=== PATIENT | male | born 1965 | race Caucasian/White ===

== ENCOUNTER 2018-08-13 11:10 | Inpatient (IN) | payer BC ==
[~2018-08-13] VITALS: Ht 193 cm; Wt 97.5 kg
[~2018-08-13 11:10] MED LIST: ATRIPLA TABLET1 TAB
[2018-08-13] MEDS ORDERED: TIVICAY (11:38)
--- NOTE | 2018-08-13 11:39 | NUR ---
PTE REFIERE DOLOR ABDOMINAL SE TRENT S/V YS EUBICA EN AREA DE OBSERVACION
--- NOTE | 2018-08-13 12:38 | NUR ---
SE EDUCA A PTE SOBRE TX MEIDCO FREDI REFIERE ENTENDER. SE ADMINISTRAN MEIDCAMENO S APTE LOS CUALES TOLERA Y SE TOMNA MUESTRAS DE LABORATORIO UTILIZANDO MEDIDAS ASEPTICAS Y SE COLOCA H/L A TE EL CUAL SE ENCUENRA PATENE SCOTTIE DE EDEMAY ENROJECIMIENTO. SE COLOCA H/L A PE Y SE NOTIFICA ESUUDIO DE CT PO PENDIENTE.
--- NOTE | 2018-08-13 17:59 | NUR ---
SE ORIENTA PTE SOBRE ADMINISTRACION DE MEDICAMENTO ANA ORDEN MEDICA,REFIERE ENTENDER.REFIERE NO PUEDE QUEDARSE YA QUE NO VINO PREPARADO CON JOSEF COSAS,REFIERE QUIERE IRSE Y REGRESAR.PTE REFIERE DR GONGORA LE ORIENTO SOBRE RIESGOS Y DOCUMENTO LAMA.SE LE NOTIFICA A DR CHARLA LAURENT QUIEN INDICA PTE PUEDE FIRMAR DOCUMENTO LAMA SI FUE ORIENTADO POR MEDICO DE SERGEY DE EMERGENCIA.SE LE ORIENTA A PTE SOBRE DOCUEMTO LAMA Y REFIERE FIRMARA LUEGO DE ACABAR ANTIBIOTICO.
--- NOTE | 2018-08-13 20:34 | NUR ---
PTE REGRESA A SERGEY PARA CONTINUAR TX.SE CANALIZA BAJO MEDIDAS ASEPTICAS Y SE COLOCA FLUIDOS DE MANTENIMIENTO BAJANDO SIN DIFICULTAD.SE NOTIFICA A DR LAURENT.
--- NOTE | 2018-08-14 00:23 | NUR ---
SE RECIBE PACIENTE EN CAMA CON MEDIDAS DE SEGURIDAD. ALERTA CONSCIENTE Y ORIENTADO X3 BUEN PATRON RESPIRATORIO. SCOTTIE DE DOLOR AL MOMENTO. IVFLUIDS PATENTE. EN ESPERA DE SER VISTO EN CONSULTA POR EL DR. Joyce LAURENT
--- NOTE | 2018-08-14 07:00 | NUR ---
PACIENTE ALERTA Y ORIENTADO EN JOSEF BONNY ESFERAS, PRESENTA BUEN PATRON RESPIRATORIO Y SCOTTIE DE DOLOR. RECIBIENDO 0.45% NSS A 125 ML/HR, VENOPUNCION PATENTE Y SCOTTIE DE S/S DE FLEBITIS E INFILTRACION. PENDIENTE CONSULTA CON COLORECTAL DR Melanie LAURENT POR APENDICITIS.
[2018-08-18] MEDS ORDERED: INTESTINEX680 M1 PO (09:22)
[2018-08-18] MEDS ORDERED: AMOX-CLAV 875-1 EACH PO (09:22)
== END 2018-08-18 11:29 | disposition home or self-care (01) | DRG 372 ==
LOC: ER 11:10 → SEC-K 08-14 08:52 → SURH 08-14 10:08
PROVIDERS: ADMIT Surgery
PROC: BW21ZZZ Computerized Tomography (CT Scan) of Abdomen and Pelvis (ICD-10-PCS; principal; 2018-08-17)
DX: K35.33 Acute appendicitis with perforation, localized peritonitis, and gangrene, with abscess (principal); B20 Human immunodeficiency virus [HIV] disease

== ENCOUNTER 2018-09-01 10:08 | Outpatient (CLI) | payer BC ==
[~2018-09-01 10:08] MED LIST changes: +AMOX-CLAV 875-1 EACH PO; +INTESTINEX680 M1 PO; +TIVICAY
== END 2018-09-01 10:12 | disposition home or self-care (01) ==
LOC: LAB 10:08
DX: R10.31 Right lower quadrant pain (principal)

== ENCOUNTER 2018-09-08 09:40 | Outpatient (CLI) | payer BC | END 2018-09-08 10:14 | disposition home or self-care (01) | LOC: TOM 09:40 | DX: K35.2 Acute appendicitis with generalized peritonitis (principal) ==

== ENCOUNTER 2018-09-21 14:14 | Outpatient (CLI) | payer BC | END 2018-09-21 14:20 | disposition home or self-care (01) | LOC: LAB 14:14 | DX: B20 Human immunodeficiency virus [HIV] disease (principal); R10.31 Right lower quadrant pain ==

== ENCOUNTER → 2018-09-21 | Outpatient (CLI) | payer BC | END | disposition home or self-care (01) | LOC: RAD 13:34 | DX: R10.31 Right lower quadrant pain (principal); B20 Human immunodeficiency virus [HIV] disease ==

== ENCOUNTER 2018-09-28 08:45 | Inpatient (IN) | payer BC ==
[~2018-09-28] VITALS: Ht 188 cm; Wt 97.5 kg
[2018-09-28] MEDS ORDERED: XANAX XR0.5 MG (10:48)
[2018-09-28] MEDS ORDERED: DESCOVY 200-251 EACH (10:48)
[2018-09-28] MEDS ORDERED: TIVICAY50 MG PO (11:01)
[2018-09-28] MEDS ORDERED: DESCOVY 200-251 EACH PO (11:01)
[2018-09-28] MEDS ORDERED: XANAX XR0.5 MG PO (11:02)
== END 2018-10-10 14:40 | disposition home or self-care (01) | DRG 339 ==
LOC: EDSTATUS 08:45 → ADM 08:45 → O/R 10-07 06:45 → SURH 10-07 08:45
PROVIDERS: ADMIT Surgery
PROC: 0DTJ4ZZ Resection of Appendix, Percutaneous Endoscopic Approach (ICD-10-PCS; principal; 2018-10-07 10:45)
DX: K35.32 Acute appendicitis with perforation, localized peritonitis, and gangrene, without abscess (principal); B20 Human immunodeficiency virus [HIV] disease; R10.31 Right lower quadrant pain; N99.89 Other postprocedural complications and disorders of genitourinary system; R33.8 Other retention of urine

== ENCOUNTER 2020-02-22 12:56 | Emergency (ER) | payer BC ==
[~2020-02-22] VITALS: Ht 195.6 cm; Wt 106.6 kg
[~2020-02-22 12:56] MED LIST changes: +DESCOVY 200-251 EACH; +DESCOVY 200-251 EACH PO; +TIVICAY50 MG PO; +XANAX XR0.5 MG; +XANAX XR0.5 MG PO
[2020-02-22] MEDS ORDERED: BIKTARVY 50-201 EACH (13:20)
[2020-02-22] MEDS ORDERED: BUTALBIT-ACETA1 EACH PO ×2 (16:38→16:40)
[2020-02-22] MEDS ORDERED: PEPCID AC20 MG PO (16:40)
== END 2020-02-22 18:01 | disposition home or self-care (01) ==
LOC: ER 12:56
DX: B34.9 Viral infection, unspecified (principal); A90 Dengue fever [classical dengue]; G44.209 Tension-type headache, unspecified, not intractable; Z03.818 Encounter for observation for suspected exposure to other biological agents ruled out

== ENCOUNTER 2023-04-19 15:17 | Emergency (ER) | payer BC ==
[~2023-04-19] VITALS: Ht 185.4 cm; Wt 90.7 kg
[~2023-04-19 15:17] MED LIST changes: +BIKTARVY 50-201 EACH; +BUTALBIT-ACETA1 EACH PO; +PEPCID AC20 MG PO
== END 2023-04-19 17:24 | disposition home or self-care (01) ==
LOC: ER 15:18
DX: H60.8X1 Other otitis externa, right ear (principal)